=== PATIENT | female | born 1955 | race Caucasian/White ===

== ENCOUNTER → 2017-02-01 | Outpatient (CLI) | payer OTHER ==
[~2017-02-01] MED LIST: ASCO100016 PO; ASPI81TA81 PO; CALC1TAB12 PO; CALC1TAB53 PO; CEPH-459 PO; CRAN400T2 PO; ECHICAP11 PO; ESTR1 PO; GLYB5TAB3 PO; LEXA10TA PO; METF1000 PO; MIDAZOLAM HCL 2 MG/2 ML VIAL ONE; MULTTAB79 PO; PERC5TAB12 PO; PHEN0.4T PO; TAMS5CAP PO
--- NOTE | 2017-02-01 11:17 | RADRPT ---
EXAM DATE/TIME: 02/01/2017 10:48 [facility] COMPARISON: CT ABDOMEN & PELVIS W/O CONTRAST, December 04, 2016, 13:04. INDICATIONS : Abdominal pain; renal stones. MEDICAL HISTORY : Diabetes mellitus type II. SURGICAL HISTORY : None. ENCOUNTER: Initial ACUITY: 1 month PAIN SCORE: 5/10 LOCATION: Bilateral Abdomen. FINDINGS: Supine view of the abdomen was performed. The abdominal bowel gas pattern is normal. No abnormal ma sses, calcifications, or organomegaly is seen. The osseous structures are unremarkable. CONCLUSION: I cannot confirm the renal stone. Is not readily apparent on the accounting technician film either. Jayesh Buckner MD FACR on February 01, 2017 at 11:11 Board Certified Radiologist. This report was verified electronically.
== END ==
LOC: HRAD 10:12
PROVIDERS: ATTEND Urology
DX: N20.1 Calculus of ureter (principal)
CPT/HCPCS: 74000

== ENCOUNTER → 2017-02-02 | Outpatient (CLI) | payer OTHER ==
[~2017-02-02] MED LIST changes: -MIDAZOLAM HCL 2 MG/2 ML VIAL ONE
--- NOTE | 2017-02-02 14:47 | RADRPT ---
EXAM DATE/TIME: 02/02/2017 14:13 [facility] COMPARISON: CT ABDOMEN & PELVIS W/O CONTRAST, December 04, 2016, 13:04. INDICATIONS : Right flank pain since November. ORAL CONTRAST: No oral contrast ingested. RADIATION DOSE: 13.35 CTDIvol (mGy) MEDICAL HISTORY : Diabetes mellitus type 2. Inflammatory bowel disease. Renal calculi. SURGICAL HISTORY : Hysterectomy. ENCOUNTER: Initial ACUITY: 2 months PAIN SCALE: 7/10 LOCATION: Right flank TECHNIQUE: Volumetric scanning of the abdomen and pelvis was performed. Using automated exposure control and ad justment of the mA and/or kV according to patient size, radiation dose was kept as low as reasonably achievable to obtain optimal diagnostic quality images. DICOM format image data is available electro nically for review and comparison. FINDINGS: LOWER LUNGS: The visualized lower lungs are clear. LIVER: Diffuse hepatic fatty infiltration with diminished attenuation. Punctate, isolated gallstone in the g allbladder lumen. SPLEEN: Normal size without lesion. PANCREAS: Within normal limits. KIDNEYS: Mild prominence of the right renal pelvis with hydroureter. On the prior exam, a stone is identified near the UPJ. This measures approximately 4 mm in diameter and has advanced into the more distal uret er at the level of the acetabular roof. Punctate, subcentimeter nonobstructing calculus in the lower pole collecting system of left kidney with an isolated area of medullary calcification in the upper p ole of the left kidney. ADRENAL GLANDS: Within normal limits. VASCULAR: There is no aortic aneurysm. BOWEL/MESENTERY: The stomach, small bowel, and colon demonstrate no acute abnormality. There is no free intraperitone al air or fluid. The vermiform appendix is upper limits of normal in diameter at 7 mm but is otherwis e radiographically intact ABDOMINAL WALL: Within normal limits. RETROPERITONEUM: There is no lymphadenopathy. BLADDER: No wall thickening or mass. REPRODUCTIVE: Status post hysterectomy. INGUINAL: There is no lymphadenopathy or hernia. MUSCULOSKELETAL: Within normal limits for patient age. CONCLUSION: 1. 4 mm calculus previously seen in the right UPJ in November 2016 has advanced down the ureter and is no w positioned at the level of the acetabular roof. There is persistent prominence of the right extrare nal pelvis and an element of hydroureter. 2. Punctate, 1-2 mm calculus in the lower pole collecting system of left kidney with an amorphous, fo tracie medullary calcification in the upper pole of the same. 3. Isolated, subcentimeter calcified gallstone. Brenton Schmitt MD on February 02, 2017 at 14:26 Board Certified Radiologist. This report was verified electronically.
== END ==
LOC: HRAD 13:41
PROVIDERS: ATTEND Urology
DX: N20.0 Calculus of kidney (principal)
CPT/HCPCS: 74176

== ENCOUNTER → 2017-02-03 | Day surgery (SDC) | payer OTHER ==
[~2017-02-03] VITALS: Ht 152.4 cm; Wt 65.7 kg
[~2017-02-03] MED LIST changes: +CHLORHEXIDINE GLUCONATE 2 % 1 PACK (2 CLOTHS) TOPICAL PRN; +DEXAMETHASONE SOD PHOS 4 MG/ML VIAL IV ONE; +DO NOT ADM ANY ANTICOAGULANT DRUGS PRN; +FUROSEMIDE 20 MG/2 ML VIAL IV PUSH ONE; +GLYCOPYRROLATE 1 MG/5 ML SYRINGE IV PUSH ONE; +INSULIN HUMAN REGULAR 1,000 UNITS/10 ML VIAL SQ PRN; +LACTATED RINGER'S 1000 ML INJ 1,000 ML IV ONE; +LACTATED RINGER'S 1000 ML IV PRN; +LIDOCAINE HCL 1% PF 5 ML AMPULE OTHER ONE; +METOPROLOL TARTRATE 25 MG TAB PO PRN; +MORPHINE SULFATE 4 MG/ML INJ IV PRN; +ONDANSETRON HCL 4 MG/2 ML VIAL IV PUSH ONE; +ONDANSETRON HCL 4 MG/2 ML VIAL IV PUSH PRN; +POVIDONE IODINE 5% (ANTISEPSIS KIT) 4 APPLICATIONS EACH NARE PRN; +PROPOFOL 200 MG/20 ML AMP IV ONE; +SODIUM CHLORID 0.9% 500 ML IV PRN; +SODIUM CHLORIDE 0.9% INJ 100 ML ONE; +ceFAZolin 1,000 MG/NS 100 ML IV SCH; +ceFAZolin INJ 1,000 MG VIAL ONE; +ePHEDrine/NS 50 MG/5 ML SYR IV ONE; +oxyCODONE/ACETAMINOPHEN 5 MG/325 MG TAB PO PRN
--- NOTE | 2017-02-03 06:52 | RADRPT ---
EXAM DATE/TIME: 02/03/2017 06:39 [facility] COMPARISON: CT ABDOMEN & PELVIS W/O CONTRAST, February 02, 2017, 14:13. ABDOMEN KUB ONLY, February 01, 2017, 1 0:48. INDICATIONS : Pre OP for lithotripsy. MEDICAL HISTORY : None. SURGICAL HISTORY : None. ENCOUNTER: Initial ACUITY: 1 day PAIN SCORE: 0/10 LOCATION: Bilateral Abdomen FINDINGS: Supine view of the abdomen was performed. The abdominal bowel gas pattern is normal. No abnormal ma sses or organomegaly is seen. There is a questionable stone projecting over the right hemipelvis. A v leah faint density is seen within this region. The osseous structures are unremarkable. CONCLUSION: Questionable stone within the right hemipelvis. CT could further evaluate. Jamari Moore Jr., MD on February 03, 2017 at 6:49 Board Certified Radiologist. This report was verified electronically.
[2017-02-03 07:19] LABS: AUTOMATED NEUTROPHIL # 3.3 TH/MM3 (1.8-7.7); BASOPHIL % 0.6 % (0.0-2.0); EOSINOPHIL # 1.2 TH/MM3 (0-0.4); EOSINOPHIL % 18.4 % (0.0-4.0); HEMATOCRIT 37.8 % (35.0-46.0); HEMO FLAGS DIFF FINAL; LYMPHOCYTE # 1.6 TH/MM3 (1.0-4.8); MEAN CORPUSCULAR HEMOGLOBIN 30.2 PG (27.0-34.0); MEAN CORPUSCULAR HGB CONC 34.3 % (32.0-36.0); MONO % 7.2 % (0.0-8.0); NEUT % 49.8 % (16.0-70.0); PLATELET COUNT 198 TH/MM3 (150-450); RED BLOOD COUNT 4.29 MIL/MM3 (4.00-5.30); RED CELL DISTRIBUTION WIDTH 12.8 % (11.6-17.2); WHITE BLOOD COUNT 6.7 TH/MM3 (4.0-11.0)
--- NOTE | 2017-02-03 09:29 | PD.OP ---
Operative Report Date of Surgery: Feb 03, 2017 Preoperative Diagnosis: Right ureteral calculus Postoperative Diagnosis: Same Procedure: Right extraportal shockwave lithotripsy Anesthesia: General LMA Surgeon: Willi Kauffman [place] Captain(s): None Resident Surgeon: None Operation and Findings: 62-year-old female with findings of right hydronephrosis with a 4 mm lower ureteral stone. Patient has been having ongoing right sided flank pain. Decision was made to bring the patient to the operating room to undergo right extracoporeal shockwave lithotripsy. Risk and benefits were discussed preoperatively and she was willing to proceed. Patient was brought to the operating room and identified by myself as Yesika Ward. She is placed on the operating table in the supine position, received preprocedure antibiotics, and general LMA anesthesia was administered. Under fluoroscopic and ultrasonic imaging guidance the stone was visualized in the right lower ureter. Patient and one on received 3000 shocks at a power level ranging from 11-20. Spreading was noted and it appeared to be fragmented. She tolerated procedure well and was woken and transferred to recovery stable condition. She will follow-up in one month and obtain a KUB x-ray prior. Willi Kauffman DO Feb 03, 2017 09:29
[2017-02-03 11:05] VITALS: BP 105/62; PULSE 90; RESP 16; TEMP 98.7; O2SAT 97
--- NOTE | 2017-02-03 20:41 | EKG ---
Date Performed: 02/03/2017 Time Performed: 06:53:14 PTAGE: 62 years EKG: Sinus rhythm NORMAL ECG NO PREVIOUS TRACING DOCTOR: Tai Ro Interpretating Date/Time 02/03/2017 20:39:15
== END | disposition home or self-care (01) ==
LOC: HSDC 06:04
PROVIDERS: ATTEND Urology
DX: N20.1 Calculus of ureter (principal); Z01.810 Encounter for preprocedural cardiovascular examination
CPT/HCPCS: 00873; 50590; 74000; 85025; 93005; J0690; J1940; J3010; J7120; J1100; J2405

== ENCOUNTER → 2017-02-15 | Outpatient (CLI) | payer OTHER ==
[~2017-02-15] MED LIST changes: -CHLORHEXIDINE GLUCONATE 2 % 1 PACK (2 CLOTHS) TOPICAL PRN; -DEXAMETHASONE SOD PHOS 4 MG/ML VIAL IV ONE; -DO NOT ADM ANY ANTICOAGULANT DRUGS PRN; -FUROSEMIDE 20 MG/2 ML VIAL IV PUSH ONE; -GLYCOPYRROLATE 1 MG/5 ML SYRINGE IV PUSH ONE; -INSULIN HUMAN REGULAR 1,000 UNITS/10 ML VIAL SQ PRN; -LACTATED RINGER'S 1000 ML INJ 1,000 ML IV ONE; -LACTATED RINGER'S 1000 ML IV PRN; -LIDOCAINE HCL 1% PF 5 ML AMPULE OTHER ONE; -METOPROLOL TARTRATE 25 MG TAB PO PRN; -MORPHINE SULFATE 4 MG/ML INJ IV PRN; -ONDANSETRON HCL 4 MG/2 ML VIAL IV PUSH ONE; -ONDANSETRON HCL 4 MG/2 ML VIAL IV PUSH PRN; -POVIDONE IODINE 5% (ANTISEPSIS KIT) 4 APPLICATIONS EACH NARE PRN; -PROPOFOL 200 MG/20 ML AMP IV ONE; -SODIUM CHLORID 0.9% 500 ML IV PRN; -SODIUM CHLORIDE 0.9% INJ 100 ML ONE; -ceFAZolin 1,000 MG/NS 100 ML IV SCH; -ceFAZolin INJ 1,000 MG VIAL ONE; -ePHEDrine/NS 50 MG/5 ML SYR IV ONE; -oxyCODONE/ACETAMINOPHEN 5 MG/325 MG TAB PO PRN
--- NOTE | 2017-02-15 11:26 | RADRPT ---
EXAM DATE/TIME: 02/15/2017 10:48 [facility] COMPARISON: CT ABDOMEN & PELVIS W/O CONTRAST, February 02, 2017, 14:13. ABDOMEN KUB ONLY, February 03, 2017, 6 :39. INDICATIONS : Right lower quadrant abdomen pain x 1 week, post lithotripsy 2 weeks MEDICAL HISTORY : kidney stones SURGICAL HISTORY : Lithotripsy ENCOUNTER: Initial ACUITY: 1 week PAIN SCORE: 9/10 LOCATION: Right lower abdomen FINDINGS: Slightly wet shaped calcified density measuring up to 5 mm near the region of the right UVJ. This cle[place]atra ears similar in shape to distal right ureteral stone noted on recent CT exam. 3 mm calcified density near the superior pole of the right kidney. Ill-defined increased density overlying the left kidney c onsistent with medullary calcification on CT exam. Small left sided calculi are not well demonstrated . Remainder the exam is unchanged. There is a nonobstructive bowel gas pattern. CONCLUSION: 1. Interval displacement of 5 mm distal right ureteral calculus to the right UVJ region. 2. Additional bilateral renal calculi, as above. Pipo Conner MD on February 15, 2017 at 11:20 Board Certified Radiologist. This report was verified electronically.
== END ==
LOC: HRAD 10:35
PROVIDERS: ATTEND Urology
DX: N20.0 Calculus of kidney (principal)
CPT/HCPCS: 74000

== ENCOUNTER → 2017-02-19 | Day surgery (SDC) | payer OTHER ==
[~2017-02-19] VITALS: Ht 160 cm; Wt 65.0 kg
[~2017-02-19] MED LIST changes: +ACETAMINOPHEN 1000 MG/100 ML 100 ML IV ONE; +CHLORHEXIDINE GLUCONATE 2 % 1 PACK (2 CLOTHS) TOPICAL PRN; +DEXAMETHASONE SOD PHOS 4 MG/ML VIAL IV ONE; +DO NOT ADM ANY ANTICOAGULANT DRUGS PRN; +FAMOTIDINE 20 MG/2 ML VIAL ONE; +GLYCOPYRROLATE 1 MG/5 ML SYRINGE IV PUSH ONE; +INSULIN HUMAN REGULAR 1,000 UNITS/10 ML VIAL SQ PRN; +LACTATED RINGER'S 1000 ML INJ 1,000 ML IV ONE; +LACTATED RINGER'S 1000 ML IV PRN; +LIDOCAINE HCL 1% PF 5 ML AMPULE OTHER ONE; +METOPROLOL TARTRATE 25 MG TAB PO PRN; +MIDAZOLAM HCL 2 MG/2 ML VIAL IV ONE; +NEOSTIGMINE 3 MG/3 ML SYR IV ONE; +ONDANSETRON HCL 4 MG/2 ML VIAL IV ONE; +ONDANSETRON HCL 4 MG/2 ML VIAL IV PUSH PRN; +PHENYLEPH/NS 1000 MCG/10 ML SYR IV ONE; +POVIDONE IODINE 5% (ANTISEPSIS KIT) 4 APPLICATIONS EACH NARE PRN; +PROPOFOL 200 MG/20 ML AMP IV ONE; +ROCURONIUM INJ 50 MG/5 ML SYRINGE IV PUSH ONE; +SODIUM CHLORID 0.9% 500 ML IV PRN; +ceFAZolin 1,000 MG/NS 100 ML IV SCH; +oxyCODONE/ACETAMINOPHEN 5 MG/325 MG TAB PO PRN
[2017-02-19] MEDS: IOHEXOL 350 MG/ML 50 ML BTL (for RAD DIAG) OTHER ONE ×2 (16:00→16:01)
--- NOTE | 2017-02-19 16:16 | PD.OP ---
Operative Report Date of Surgery: Feb 19, 2017 Preoperative Diagnosis: (1) Ureteral calculus, right Postoperative Diagnosis: (1) Ureteral stricture, right (2) Ureteral calculus, right Procedure: Cystoscopy, right retrograde pyelogram, right ureteroscopy with laser lithotripsy and placement of right ureteral stent Anesthesia: General Surgeon: Rolf Mccauley Electric Motor Repair Supervisor(s): None Operation and Findings: Indication for procedure: Case of a pleasant 62-year-old female with an obstructing right ureteral calculus who presents now to undergo right ureteroscopy with laser lithotripsy. Operative procedure in detail: Patient was brought to the operating room suite and placed supine on the OR table. She was then placed under general anesthesia. She was then repositioned in the dorsolithotomy position and prepped and draped in normal sterile fashion. After appropriate timeout was undertaken I proceeded with cystoscopic evaluation utilizing the rigid cystoscope with the 20 Beninese sheath and 30 lens. Both right and left ureteral orifice these were correct anatomic position. There was clear reflux noted on the left and there was no reflux noted on the right. A 6 Beninese open- ended ureteral catheter was utilized and a right retrograde pyelogram study was performed that demonstrated an obstructing stone approximately two [address] way down the right ureter. I next advanced a sensor 0.035 wire up the patient' s right ureter into the right renal pelvis. The self dilating ureteroscope was then advanced along this previously past wire with a second wire through the lumen to facilitate scope passage. Just prior to reaching the stone the patient was noted to have a moderate stricture of the ureter which was easily dilated by virtue of passing the ureteroscope. Once the stricture was dilated I was able to clearly visualize the stone and subsequently break it up utilizing the holmium laser with a 200 fiber. Once the stone was broken up some of the larger fragments were grasped with a 2.4 Beninese basket and sent off for chemical composition analysis. Ureteroscope was withdrawn of the cystoscope reintroduced. A 6 Beninese 24 centimeter [place] stent was next placed on the both cystoscopic and fluoroscopic guidance without difficulty. Once the stent was in proper position the trailing string was removed. A 16 Beninese 10 cc [place] catheter was in place and connected to gravity drainage. The patient tolerated the procedure without complications and was transferred to the PACU in satisfactory condition. I anticipate sending the patient home today and removing the stent no sooner than 6 weeks from today. Rolf Mccauley MD Feb 19, 2017 16:16
[2017-02-19 18:20] VITALS: BP 104/69; PULSE 71; RESP 18; TEMP 98; O2SAT 95
== END | disposition home or self-care (01) ==
LOC: HSDC 11:48
PROVIDERS: ATTEND Urology
DX: N20.1 Calculus of ureter (principal); N13.5 Crossing vessel and stricture of ureter without hydronephrosis; E11.9 Type 2 diabetes mellitus without complications
CPT/HCPCS: 00873; 52356; 74420; 82365; 82370; 88300; C1726; C1769; J0131; J0690; J1100; J2250; J2370; J2405; J2710; J3010; J7120; Q9967

== ENCOUNTER → 2017-04-26 | Outpatient (CLI) | payer OTHER ==
[~2017-04-26] MED LIST changes: -ACETAMINOPHEN 1000 MG/100 ML 100 ML IV ONE; -ASCO100016 PO; +ASCO100029 PO; -CHLORHEXIDINE GLUCONATE 2 % 1 PACK (2 CLOTHS) TOPICAL PRN; -DEXAMETHASONE SOD PHOS 4 MG/ML VIAL IV ONE; -DO NOT ADM ANY ANTICOAGULANT DRUGS PRN; -FAMOTIDINE 20 MG/2 ML VIAL ONE; -GLYCOPYRROLATE 1 MG/5 ML SYRINGE IV PUSH ONE; -INSULIN HUMAN REGULAR 1,000 UNITS/10 ML VIAL SQ PRN; -LACTATED RINGER'S 1000 ML INJ 1,000 ML IV ONE; -LACTATED RINGER'S 1000 ML IV PRN; -LIDOCAINE HCL 1% PF 5 ML AMPULE OTHER ONE; -METOPROLOL TARTRATE 25 MG TAB PO PRN; -MIDAZOLAM HCL 2 MG/2 ML VIAL IV ONE; -NEOSTIGMINE 3 MG/3 ML SYR IV ONE; -ONDANSETRON HCL 4 MG/2 ML VIAL IV ONE; -ONDANSETRON HCL 4 MG/2 ML VIAL IV PUSH PRN; -PHENYLEPH/NS 1000 MCG/10 ML SYR IV ONE; -POVIDONE IODINE 5% (ANTISEPSIS KIT) 4 APPLICATIONS EACH NARE PRN; -PROPOFOL 200 MG/20 ML AMP IV ONE; -ROCURONIUM INJ 50 MG/5 ML SYRINGE IV PUSH ONE; -SODIUM CHLORID 0.9% 500 ML IV PRN; -ceFAZolin 1,000 MG/NS 100 ML IV SCH; -oxyCODONE/ACETAMINOPHEN 5 MG/325 MG TAB PO PRN
--- NOTE | 2017-04-26 10:27 | RADRPT ---
EXAM DATE/TIME: 04/26/2017 09:21 [facility] COMPARISON: No previous studies available for comparison. INDICATIONS : Urethral stricture. Hydronephrosis. MEDICAL HISTORY : Renal calculi. Diabetes mellitus type 2. Irritable bowel. UTI. Hay fever. Depression. Anticoagulant therapy, Aspirin 81mg. SURGICAL HISTORY : Hysterectomy. Cystoscopy with removal of right ureteral stent. ENCOUNTER: Initial ACUITY: 1 day PAIN SCORE: 1/10 LOCATION: Bilateral flank MEASUREMENTS: RIGHT KIDNEY: 11.5 x 4.5 x 5.2 cm LEFT KIDNEY: 11.3 x 5.8 x 6.1 cm FINDINGS: RIGHT KIDNEY: Renal cortex is normal in thickness and echotexture. No hydronephrosis, stone, or mass. LEFT KIDNEY: Renal cortex is normal in thickness and echotexture. An 8mm calculus is identified in the lower pole. There is no evidence of hydronephrosis or mass. BLADDER: Within normal limits given the degree of distension. CONCLUSION: 1. 8mm calculus in the lower pole of left kidney. 2. Otherwise normal study without evidence of hydronephrosis, suspicious masses or acute abnormality. Te Vera MD on April 26, 2017 at 10:23 Board Certified Radiologist. This report was verified electronically.
== END ==
LOC: HRAD 09:08
PROVIDERS: ATTEND Urology
DX: N13.5 Crossing vessel and stricture of ureter without hydronephrosis (principal)
CPT/HCPCS: 76775